=== PATIENT | female | born 1980 | race Caucasian/White ===

== ENCOUNTER 2019-04-29 07:25 | Outpatient (CLI) | payer BC, SELFPAY ==
--- NOTE | ~2019-04-29 | US_ITS ---
EXAMINATION: US right upper quadrant EXAM DATE: 04/29/2019 08:05 INDICATION: Right upper quadrant pain. TECHNIQUE: Multiple grayscale and Doppler images of the abdomen right upper quadrant were obtained (b y a technologist who performed the scan) and subsequently reviewed. There is no prior study for alejandro garcia. FINDINGS: The pancreatic head and body are normal in appearance. The pancreatic tail is not visualized. The l iver has normal echogenicity and contour. There are no focal liver lesions identified. There is no evidence of intrahepatic biliary duct dilation. Portal venous flow was seen in the hepatopedal, nor mal direction and has normal Doppler waveform. No right-sided hydronephrosis. Common bile duct measures 4 mm, which is normal. The gallbladder wall is normal in thickness, with ex pected amount of distention. No sonographic evidence of pericholecystic fluid. There is no cholelit hiases. Technologist performing exam reports patient did not demonstrate sonographic Rosa's sign. Please note that this sign is less reliable in patients who have received pain medication. IMPRESSION: 1. Unremarkable abdominal ultrasound exam. Reviewed, dictated and finalized at location B. [employer]
== END 2019-04-29 07:26 | disposition home or self-care (01) ==
PROVIDERS: PCP Emergency Medicine; Visit Provider Emergency Medicine
DX: R10.11 Right upper quadrant pain (principal)
CPT/HCPCS: 76705

== ENCOUNTER 2019-07-25 10:37 | Outpatient (CLI) | payer BC, SELFPAY ==
[2019-07-25 11:15] LABS: CRP < 0.5 mg/dL (<1.0); Magnesium 1.5 mg/dL (1.6-2.3)
[2019-07-25 11:19] LABS: Complement C3 120 mg/dL (88-165)
[2019-07-25 11:21] LABS: Erythrocyte Sedimentation Rate 15 mm/hr (0-20)
[2019-07-27 13:36] LABS: SS-A <1.0; SS-B <1.0
[2019-07-28 03:20] LABS: Hexagonal Phase Confirm Negative (Negative); Lupus dRVVT 1:1 Mix Interpreta Not Indicated; Lupus dRVVT Screen 34 sec (<=45); PTT-LA Screen 41 sec (<=40)
[2019-07-29 08:29] LABS: SM Antibody <1.0; SM/RNP Antibody <1.0
== END 2019-07-25 10:38 | disposition home or self-care (01) ==
PROVIDERS: PCP Emergency Medicine; Visit Provider Internal Medicine
DX: M19.90 Unspecified osteoarthritis, unspecified site (principal); M79.7 Fibromyalgia
CPT/HCPCS: 36415; 82306; 83735; 85598; 85613; 85652; 85730; 86038; 86039; 86140; 86160; 86225; 86235

== ENCOUNTER 2019-10-25 12:06 | Outpatient (CLI) | payer BC, SELFPAY ==
[2019-10-25 12:50] LABS: Erythrocyte Sedimentation Rate 19 mm/hr (0-20)
[2019-10-28 22:48] LABS: Vitamin D 1,25 (OH)2 Total 17 pg/mL (18-72); Vitamin D2 1,25 (OH)2 <8 pg/mL; Vitamin D3 1,25 (OH)2 17 pg/mL
== END 2019-10-25 12:07 | disposition home or self-care (01) ==
PROVIDERS: PCP Emergency Medicine; Visit Provider Emergency Medicine
DX: E55.9 Vitamin D deficiency, unspecified (principal); M32.9 Systemic lupus erythematosus, unspecified
CPT/HCPCS: 36415; 82652; 85652; 86038; 86039

== ENCOUNTER → 2020-10-08 16:05 | Outpatient (CLI) | payer OTHER, SELFPAY ==
--- NOTE | ~2020-10-08 | MM_ITS ---
EXAMINATION: MM screening jose angel BI w myriam HISTORY: Screening mammogram. Baseline mammogram. TECHNIQUE: Craniocaudal and mediolateral oblique 3-D tomosynthesis images were obtained and synthetic 2-D images were generated. CAD analysis was submitted and interpreted. COMPARISON: No prior mammogram is available for comparison at this institution. BREAST PARENCHYMAL COMPOSITION: There are scattered areas of fibroglandular density. FINDINGS: Circumscribed benign-appearing approximately 6 mm probable upper outer quadrant right intra mammary lymph node. Posterior left axillary tail circumscribed opacity is consistent with lymph node. There is no evidence of suspicious mass, calcification, or architectural distortion to suggest malig halima in either breast. There has been no suspicious interval change. IMPRESSION: 1. No mammographic evidence of malignancy. 2. Recommend routine screening mammography in one year. BI-RADS Category 2: Benign finding(s). Reviewed, dictated and finalized at location A.
== END ==
PROVIDERS: PCP Nurse Practitioner Family; Visit Provider Nurse Practitioner Family
DX: Z12.31 Encounter for screening mammogram for malignant neoplasm of breast (principal)
CPT/HCPCS: 77063; 77067